=== PATIENT | male | born 1975 | race Native Hawaiian/Other Pacific Islander ===

== ENCOUNTER 2019-07-08 02:11 | Emergency (ER) | payer OTHER ==
[~2019-07-08] VITALS: Ht 172.7 cm; Wt 59.0 kg
[2019-07-08 02:19] VITALS: TEMP 98.1
[2019-07-08 04:20] LABS: POTASSIUM 4.5 mmol/L (3.6-5.2)
[2019-07-08 04:31] LABS: PARTIAL THROMBOPLASTIN TIME 23.2 SECONDS (24.5-33.6)
[2019-07-08 04:41] LABS: PLATELET COUNT 269 K/uL (142-355)
[2019-07-08 04:51] VITALS: BP 153/91
== END 2019-07-08 04:53 ==
LOC: ED 02:11
PROVIDERS: Emergency Medicine
DX: S06.6X0A Traumatic subarachnoid hemorrhage without loss of consciousness, initial encounter (principal); S06.5X0A Traumatic subdural hemorrhage without loss of consciousness, initial encounter; W01.198A Fall on same level from slipping, tripping and stumbling with subsequent striking against other object, initial encounter; Y92.149 Unspecified place in prison as the place of occurrence of the external cause
CPT/HCPCS: 36415; 80053; 85027; 85610; 85730; 96365; 96375; 99285; J0132; J2405